=== PATIENT | male | born 1980 | race Caucasian/White ===

== ENCOUNTER 2021-04-20 10:57 | Emergency (ER) | payer OTHER, SELFPAY ==
--- NOTE | 2021-04-20 11:01 | ED.EYEPROB ---
HPI - Eye Problem General Chief complaint: Eye Problems Stated complaint: Redness and swollen left Eye Time Seen by Provider: 04/20/21 11:01 Source: patient and RN notes reviewed History of Present Illness HPI Narrative: Patient is a 40-year-old male who presents the urgent care with complaints of left eye redness and swelling. Patient states that he noticed some irritation last night and woke up with increased swelling this morning. Patient states he has taken Benadryl and Claritin and used some allergy eyedrops to the eye. Patient denies of other upper respiratory symptoms or fever, nausea, vomiting. Denies of any vision change. States that he does wear contacts and has taken the contacts out. No other acute complaints. No acute distress noted. Patient read the plan of care. Some parts of this dictation were generated by voice recognition software and may contain typographical and/or grammatical inaccuracies. Review of Systems Review of Systems: CONSTITUTIONAL: Denies fever, chills, or sweats. EYES: Reports of drainage, redness and left eye irritation ENT: Denies rhinorrhea, congestion, sore throat, or otalgia. CARDIOVASCULAR: Denies chest pain, palpitations, or edema. RESPIRATORY: Denies cough or dyspnea. GASTROINTESTINAL: Denies abdominal pain, nausea, vomiting, or diarrhea. GENITOURINARY: Denies dysuria or hematuria. SKIN: Denies rash or itching. MUSCULOSKELETAL: Denies back pain, joint pain, or myalgia. NEUROLOGIC: Denies headache, numbness, or weakness. All other systems reviewed are negative, except as documented in HPI. PMFSH Comments At the time of my signature, I reviewed and agree with the nursing past medical, surgical, social, and family history. There is no relevant family history pertinent to the patient complaint. Exam Narrative: GENERAL: This is a well-nourished, well-developed patient, in no apparent distress. HEAD: normocephalic, atraumatic. EYES: PERRL. Erythemic left sclera with injected conjunctive a and scant clear drainage with mild upper eyelid edema. No hordeolum noted to the left. Right conjunctive a slightly injected with clear to white drainage. Right sclera clear/white. Vision is grossly intact. EARS: External ears normal NOSE: External nose normal with no obvious nasal discharge, nares without redness, no rhinorrhea. THROAT: Mucous membranes moist NECK: Neck supple CARDIOVASCULAR: Regular rate and rhythm without murmurs, gallops, or rubs. RESPIRATORY: Clear to auscultation. Breath sounds equal bilaterally. No wheezes, rales, or rhonchi. SKIN: warm, intact with no suspicious lesions or rash, good texture and turgor. NEURO: awake, alert, and oriented to person, place and time. There were no obvious focal neurologic abnormalities. EXTREMITIES: No clubbing, cyanosis, or edema. Course Vital Signs Vital signs: Vital Signs Temperature 98.8 F 04/20/21 11:08 Pulse Rate 80 04/20/21 11:08 Respiratory Rate 18 04/20/21 11:08 Blood Pressure 144/85 H 04/20/21 11:08 Pulse Oximetry 99 04/20/21 11:08 Temperature 98.8 F 04/20/21 11:08 Pulse Rate 80 04/20/21 11:08 Respiratory Rate 18 04/20/21 11:08 Blood Pressure 144/85 H 04/20/21 11:08 Pulse Oximetry 99 04/20/21 11:08 Reviewed-patient is informed that they may have pre-hypertension or hypertension based on a blood pressure reading in the department. I recommend the patient call the primary care provider listed on their discharge instructions or a physician of their choice this week to arrange follow-up for further evaluation of possible pre-hypertension or hypertension. MDM - Eye Problem MDM Narrative Medical decision making narrative: Advised the patient to use Tylenol/ibuprofen as needed with warm compress to the left eye. Use eyedrops to bilateral eyes, being sure to wipe the applicator tip after each application. Complete the steroid regimen as prescribed. Do not wear your contacts and make sure to throw out the conta
[2021-04-20 11:08] VITALS: BP 144/85; PULSE 80; RESP 18; TEMP 37.1; O2SAT 99
== END 2021-04-20 11:30 | disposition home or self-care (01) ==
PROVIDERS: Emergency Provider Nurse Practitioner Family
DX: H10.9 Unspecified conjunctivitis (principal)
CPT/HCPCS: 99213; G0463